=== PATIENT | male | born 1985 | race Caucasian/White ===

== ENCOUNTER 2017-09-28 16:05 | Emergency (ER) | payer SELFPAY ==
[~2017-09-28] VITALS: Ht 175.3 cm; Wt 82.0 kg
[2017-09-28 16:15] VITALS: BP 105/83; PULSE 120; RESP 20; O2SAT 98
[2017-09-28] MEDS ORDERED: HALOPERIDOL LACTATE 5 MG/ML AMP IM ONE (16:15)
[2017-09-28] MEDS ORDERED: LORazepam 2 MG/ML VIAL IM ONE ×3 (16:15→17:00)
--- NOTE | 2017-09-28 16:28 | PD ---
HPI Chief Complaint: Alcohol/Drug Intoxication Time Seen by Provider: 16:13 Travel History International Travel<30 days: No Contact w/Intl Traveler<30days: No Traveled to known affect area: No History of Present Illness HPI 32-year-old male was brought in by police department for combative behavior. Patient's mother states that patient went into the bathroom and came out with altered behavior. Patient admitted to methamphetamine, cocaine and heroin. Patient states that he ingested methamphetamine the past few days. Patient states that he did cocaine and heroin earlier today. Patient denies any headache. Patient denies any chest pain or shortness of breath. Patient denies abdominal pain. Unable to get more information from patient secondary to uncooperation. Patient is agitated and combative. FORMERLY [facility], [facility] Social History Tobacco Use: No Allergies-Medications (Allergen,Severity, Reaction): Coded Allergies: phenobarbital (Unverified Adverse Reaction, Unknown, 09/28/17) Review of Systems General / Constitutional: No: Fever Eyes: No: Visual changes HENT: No: Headaches Cardiovascular: No: Chest Pain or Discomfort Respiratory: No: Shortness of Breath Gastrointestinal: No: Abdominal Pain Genitourinary: No: Dysuria Musculoskeletal: No: Pain Skin: No Rash Neurologic: No: Weakness Psychiatric: No: Depression Endocrine: No: Polydipsia Hematologic/Lymphatic: No: Easy Bruising Physical Exam Narrative GENERAL: Well-nourished, well-developed patient. SKIN: Focused skin assessment warm/dry. HEAD: Normocephalic. EYES: No scleral icterus. No injection or drainage. Pupils pinpoint NECK: Supple, trachea midline. No JVD or lymphadenopathy. CARDIOVASCULAR: Regular rate and rhythm without murmurs, gallops, or rubs. RESPIRATORY: Breath sounds equal bilaterally. No accessory muscle use. GASTROINTESTINAL: Abdomen soft, non-tender, nondistended. MUSCULOSKELETAL: No cyanosis, or edema. BACK: Nontender without obvious deformity. No CVA tenderness. Neurologic exam: Patient's agitated and combative. Patient moves all extremity well. No obvious focal neurological deficit. Data Data Last Documented VS Vital Signs Date Time Temp Pulse Resp B/P (MAP) Pulse Ox O2 Delivery O2 Flow Rate FiO2 09/29/17 06:48 09/29/17 01:33 65 16 98 Room Air 09/28/17 20:37 98.8 Orders Orders Haloperidol Inj (Haldol Inj) (09/28/17 16:15) Lorazepam Inj (Ativan Inj) (09/28/17 16:15) Electrocardiogram (09/28/17 16:16) Complete Blood Count With Diff (09/28/17 16:16) Comprehensive Metabolic Panel (09/28/17 16:16) Creatine Kinase (Cpk) (09/28/17 16:16) Troponin I (09/28/17 16:16) Iv Access Insert/Monitor (09/28/17 16:16) Ecg Monitoring (09/28/17 16:16) Oximetry (09/28/17 16:16) Drug Screen, Random Urine (09/28/17 16:16) Alcohol (Ethanol) (09/28/17 16:16) Restraints Violent (09/28/17 16:24) Lorazepam Inj (Ativan Inj) (09/28/17 16:45) Lorazepam Inj (Ativan Inj) (09/28/17 17:00) CKMB (09/28/17 17:15) CKMB% (09/28/17 17:15) Dextrose 50% In Alfonso (Vial) Inj (D50w (Vi (09/28/17 19:30) Sodium Chlor 0.9% 1000 Ml Inj (Ns 1000 M (09/28/17 20:45) Sodium Chlor 0.9% 1000 Ml Inj (Ns 1000 M (09/28/17 20:45) Ed Discharge Order (09/29/17 03:58) Labs Laboratory Tests Test 09/28/17 17:15 09/28/17 17:40 White Blood Count 14.3 TH/MM3 Red Blood Count 4.56 MIL/MM3 Hemoglobin 13.2 GM/DL Hematocrit 38.7 % Mean Corpuscular Volume 85.0 FL Mean Corpuscular Hemoglobin 28.9 PG Mean Corpuscular Hemoglobin Concent 34.0 % Red Cell Distribution Width 14.4 % Platelet Count 208 TH/MM3 Mean Platelet Volume 8.3 FL Neutrophils (%) (Auto) 77.7 % Lymphocytes (%) (Auto) 13.1 % Monocytes (%) (Auto) 7.4 % Eosinophils (%) (Auto) 1.5 % Basophils (%) (Auto) 0.3 % Neutrophils # (Auto) 11.1 TH/MM3 Lymphocytes # (Auto) 1.9 TH/MM3 Monocytes # (Auto) 1.1 TH/MM3 Eosinophils # (Auto) 0.2 TH/MM3 Basophils # (Auto) 0.0 TH/MM3 CBC Comment DIFF FINAL Differential Comment Blood Urea Nitrogen 25 MG/DL Creatinine 1.12 MG/DL Random Glucose 71 MG/DL Total Protein 7.6 GM/DL Albumin 3.9 GM/DL Calcium Level 8.6 MG/DL Alkaline Phosphatase 88 U/L Aspartate Amino Transf (AST/SGOT) 80 U/L Alanine Aminotransferase (ALT/SGPT) 120 U/L Total Bilirubin 0.6 MG/DL Sodium Level 140 MEQ/L Potassium Level 3.7 MEQ/L Chloride Level 104 MEQ/L Carbon Dioxide Level 27.7 MEQ/L Anion Gap 8 MEQ/L Estimat Glomerular Filtration Rate 76 ML/MIN Total Creatine Kinase 419 U/L Creatine Kinase MB 5.7 NG/ML Creatine Kinase MB % 1.4 % Troponin I LESS THAN 0.02 NG/ML Ethyl Alcohol Level LESS THAN 3 MG/DL Urine Opiates Screen POS Urine Barbiturates Screen NEG Urine Amphetamines Screen POS Urine Benzodiazepines Screen NEG Urine Cocaine Screen POS Urine Cannabinoids Screen POS MDM Medical Decision Making Medical Screen Exam Complete: Yes Emergency Medical Condition: Yes Interpretation(s) 1740 p.m. CBC WBC 14.3. 77 neutrophil. BUN 25. Glucose 71. AST 80. ALT 120. CK MB fraction normal. Troponin normal. Urine drug screen positive for opiates, amphetamines, cocaine and cannabis. Alcohol negative. Differential Diagnosis Differential diagnosis including drug-induced mood disorder, psychosis, schizophrenia, electrolyte imbalance. Narrative Course 32-year-old male with combative and agitated behavior. Patient admitted to substance abuse including cocaine, heroin, amphetamine. Patient was restrained with leather. Haldol 5 mg IM. Ativan 2 mg IM. Repeated Ativan 2 mg IM. D50 25 mL IV given. Diagnosis Primary Impression: Substance induced mood disorder Miguel Ruth MD Sep 28, 2017 16:28
[2017-09-28 17:33] LABS: AUTOMATED NEUTROPHIL # 11.1 TH/MM3 (1.8-7.7); BASOPHIL % 0.3 % (0.0-2.0); EOSINOPHIL # 0.2 TH/MM3 (0-0.4); EOSINOPHIL % 1.5 % (0.0-4.0); HEMATOCRIT 38.7 % (39.0-51.0); HEMOGLOBIN 13.2 GM/DL (13.0-17.0); LYMPH % 13.1 % (9.0-44.0); LYMPHOCYTE # 1.9 TH/MM3 (1.0-4.8); MEAN CORPUSCULAR HEMOGLOBIN 28.9 PG (27.0-34.0); MEAN PLATELET VOLUME 8.3 FL (7.0-11.0); MONO % 7.4 % (0.0-8.0); MONOCYTE # 1.1 TH/MM3 (0-0.9); NEUT % 77.7 % (16.0-70.0); PLATELET COUNT 208 TH/MM3 (150-450); RED BLOOD COUNT 4.56 MIL/MM3 (4.50-5.90); RED CELL DISTRIBUTION WIDTH 14.4 % (11.6-17.2); WHITE BLOOD COUNT 14.3 TH/MM3 (4.0-11.0)
[2017-09-28 17:50] LABS: ALBUMIN 3.9 GM/DL (3.4-5.0); ALT (GPT) 120 U/L (12-78); AST (GOT) 80 U/L (15-37); BICARBONATE 27.7 MEQ/L (21.0-32.0); BLOOD UREA NITROGEN 25 MG/DL (7-18); CALCIUM 8.6 MG/DL (8.5-10.1); CHLORIDE 104 MEQ/L (98-107); CREATININE 1.12 MG/DL (0.60-1.30); GLOMERULAR FILTRATION RATE 76 ML/MIN (>89); GLUCOSE,RANDOM 71 MG/DL (74-106); SODIUM (NA) 140 MEQ/L (136-145)
[2017-09-28 17:54] LABS: ALKALINE PHOSPHATASE 88 U/L (45-117); TOTAL BILIRUBIN ADULT 0.6 MG/DL (0.2-1.0); TOTAL PROTEIN 7.6 GM/DL (6.4-8.2); TROPONIN I LESS THAN 0.02 NG/ML (0.02-0.05)
[2017-09-28] MEDS ORDERED: DEXTROSE 50% IN WATER 50 ML VIAL(D50) IV PUSH ONE (19:30)
[2017-09-28 19:41] VITALS: BP 156/69; PULSE 91; RESP 18; O2SAT 99
--- NOTE | 2017-09-28 20:36 | PD ---
Data Data Last Documented VS Vital Signs Date Time Temp Pulse Resp B/P (MAP) Pulse Ox O2 Delivery O2 Flow Rate FiO2 09/29/17 01:33 65 16 101/59 (73) 98 Room Air 09/28/17 20:37 98.8 Orders Orders Haloperidol Inj (Haldol Inj) (09/28/17 16:15) Lorazepam Inj (Ativan Inj) (09/28/17 16:15) Electrocardiogram (09/28/17 16:16) Complete Blood Count With Diff (09/28/17 16:16) Comprehensive Metabolic Panel (09/28/17 16:16) Creatine Kinase (Cpk) (09/28/17 16:16) Troponin I (09/28/17 16:16) Iv Access Insert/Monitor (09/28/17 16:16) Ecg Monitoring (09/28/17 16:16) Oximetry (09/28/17 16:16) Drug Screen, Random Urine (09/28/17 16:16) Alcohol (Ethanol) (09/28/17 16:16) Restraints Violent (09/28/17 16:24) Lorazepam Inj (Ativan Inj) (09/28/17 16:45) Lorazepam Inj (Ativan Inj) (09/28/17 17:00) CKMB (09/28/17 17:15) CKMB% (09/28/17 17:15) Dextrose 50% In Alfonso (Vial) Inj (D50w (Vi (09/28/17 19:30) Sodium Chlor 0.9% 1000 Ml Inj (Ns 1000 M (09/28/17 20:45) Sodium Chlor 0.9% 1000 Ml Inj (Ns 1000 M (09/28/17 20:45) Ed Discharge Order (09/29/17 03:58) Labs Laboratory Tests Test 09/28/17 17:15 09/28/17 17:40 White Blood Count 14.3 TH/MM3 Red Blood Count 4.56 MIL/MM3 Hemoglobin 13.2 GM/DL Hematocrit 38.7 % Mean Corpuscular Volume 85.0 FL Mean Corpuscular Hemoglobin 28.9 PG Mean Corpuscular Hemoglobin Concent 34.0 % Red Cell Distribution Width 14.4 % Platelet Count 208 TH/MM3 Mean Platelet Volume 8.3 FL Neutrophils (%) (Auto) 77.7 % Lymphocytes (%) (Auto) 13.1 % Monocytes (%) (Auto) 7.4 % Eosinophils (%) (Auto) 1.5 % Basophils (%) (Auto) 0.3 % Neutrophils # (Auto) 11.1 TH/MM3 Lymphocytes # (Auto) 1.9 TH/MM3 Monocytes # (Auto) 1.1 TH/MM3 Eosinophils # (Auto) 0.2 TH/MM3 Basophils # (Auto) 0.0 TH/MM3 CBC Comment DIFF FINAL Differential Comment Blood Urea Nitrogen 25 MG/DL Creatinine 1.12 MG/DL Random Glucose 71 MG/DL Total Protein 7.6 GM/DL Albumin 3.9 GM/DL Calcium Level 8.6 MG/DL Alkaline Phosphatase 88 U/L Aspartate Amino Transf (AST/SGOT) 80 U/L Alanine Aminotransferase (ALT/SGPT) 120 U/L Total Bilirubin 0.6 MG/DL Sodium Level 140 MEQ/L Potassium Level 3.7 MEQ/L Chloride Level 104 MEQ/L Carbon Dioxide Level 27.7 MEQ/L Anion Gap 8 MEQ/L Estimat Glomerular Filtration Rate 76 ML/MIN Total Creatine Kinase 419 U/L Creatine Kinase MB 5.7 NG/ML Creatine Kinase MB % 1.4 % Troponin I LESS THAN 0.02 NG/ML Ethyl Alcohol Level LESS THAN 3 MG/DL Urine Opiates Screen POS Urine Barbiturates Screen NEG Urine Amphetamines Screen POS Urine Benzodiazepines Screen NEG Urine Cocaine Screen POS Urine Cannabinoids Screen POS MDM Medical Record Reviewed: Yes Supervised Visit with AN: No Narrative Course Patient arrives by police department due to combative conduct at home. He is reported to have gone to the bathroom and to have presumably abused multiple drugs and upon reentering the house conducting himself in an aggressive and threatening manner. Please refer to the outgoing provider note. Time my reassessment at 835 the patient was resting in bed. Pt again resting comfortably in bed at 425am and is ready for discharge. CBC & BMP Diagram 09/28/17 17:15 Total Protein 7.6, Albumin 3.9, Calcium Level 8.6, Alkaline Phosphatase 88, Aspartate Amino Transf (AST/SGOT) 80 H, Alanine Aminotransferase (ALT/SGPT) 120 H, Total Bilirubin 0.6 CK 419 Tn < 0.02 UTOX: Positive for opiates, amphetamines, cocaine, cannabinoids Diagnosis Primary Impression: Substance induced mood disorder Med/Other Pt SpecificInfo: No Change to Meds Disposition: 01 DISCHARGE HOME Condition: Stable Stephen Rivas MD Sep 28, 2017 20:36
[2017-09-28 20:37] VITALS: TEMP 98.8
[2017-09-28] MEDS ORDERED: SODIUM CHLOR 0.9% 1000 ML INJ 1,000 ML IV ONE ×2 (20:45)
[2017-09-28 21:35] VITALS: BP 129/80; PULSE 84; RESP 18; O2SAT 98
[2017-09-29 01:33] VITALS: BP 101/59; PULSE 65; RESP 16; O2SAT 98
--- NOTE | 2017-09-29 12:05 | EKG ---
Date Performed: 09/28/2017 Time Performed: 17:34:33 PTAGE: 32 years EKG: SINUS TACHYCARDIA ABNORMAL RHYTHM ECG NO PREVIOUS TRACING DOCTOR: Xavi Mccollum Interpretating Date/Time 09/29/2017 12:04:00
== END 2017-09-29 06:49 | disposition home or self-care (01) ==
LOC: NEPE 16:05
DX: F19.94 Other psychoactive substance use, unspecified with psychoactive substance-induced mood disorder (principal); R00.0 Tachycardia, unspecified; R45.1 Restlessness and agitation
CPT/HCPCS: 80053; 80307; 82550; 82552; 84484; 85025; 93005; 96361; 96372; 96374; 99285; J1630; J2060; J7030